=== PATIENT | male | born 1975 | race Asian ===

== ENCOUNTER 2019-08-23 14:12 | Emergency (ER) | payer BC ==
[~2019-08-23] VITALS: Ht 165.1 cm; Wt 68.0 kg
--- NOTE | 2019-08-23 14:35 | NUR ---
Patient to ER bed 05 to gown for evaluation. Side rails up.
--- NOTE | 2019-08-23 14:36 | NUR ---
Patient arrived in the ED c/o laceration on the dorsal aspect of the right foot after a box fell on it today - was seen in [facility] [place] . Denied any chest pain or shortness of breath. Denied any fevers or chills. Patient is alert and oriented x4, respirations even and unlabored, speaking in full sentences and ambulating with a steady gait. VSS, pain level 7/10. Informed of the approximate wait time. Instructed to notify ED staff for any changes in condition or worsening of symptoms while waiting to be seen by the provider. Patient verbalized understanding.
--- NOTE | 2019-08-23 14:38 | NUR ---
ER KLARISSA Urban at bedside examining patient.
--- NOTE | 2019-08-23 14:39 | NUR ---
X-ray tech at bedside as ordered by Dr. Mccloud. Patient tolerated the procedure well.
[2019-08-23 14:43] VITALS: BP_SYST 144
[2019-08-23] MEDS ORDERED: DIPH-TET-PERTUS Vaccine 0.5 ML VIAL (ADACEL) I.M. ONE (15:15)
[2019-08-23] MEDS ORDERED: HYDROcodone/ACETAMIN 5-325 MG TAB (NORCO/ VICODIN) PO ONE (15:15)
--- NOTE | 2019-08-23 15:15 | NUR ---
Administered [place] 5-325 PO and TDaP IM as ordered by Zoraida Urban ([email or web address]). Patient tolerated the medication well. See eMAR for details.
[2019-08-23] MEDS ORDERED: LIDOCAINE 2%, 20 ML MDV INJ ONE (15:45)
[2019-08-23] MEDS ORDERED: BACITRACIN 1 GM OINT TP ONE (16:00)
--- NOTE | 2019-08-23 16:15 | NUR ---
ER KLARISSA Urban at bedside doing a lac repair. Patient tolerated the procedure well.
[2019-08-23 17:05] VITALS: BP_SYST 124
--- NOTE | 2019-08-23 17:05 | NUR ---
Patient given written and verbal discharge instructions and verbalizes understanding. ER MD discussed with patient the results and treatment provided. Patient in stable condition. ID arm band removed. Rx of [place], Motrin, and Augmentin given. Patient educated on pain management and to follow up with PMD. Pain Scale 0/10. Opportunity for questions provided and answered. Medication side effect fact sheet provided.
== END 2019-08-23 17:05 | disposition home or self-care (01) ==
LOC: SED 14:12
DX: S91.311A Laceration without foreign body, right foot, initial encounter (principal); R03.0 Elevated blood-pressure reading, without diagnosis of hypertension; W22.8XXA Striking against or struck by other objects, initial encounter; Y93.89 Activity, other specified; Y92.59 Other trade areas as the place of occurrence of the external cause; Y99.8 Other external cause status
CPT/HCPCS: 12001; 73630; 90471; 90715; 99283; J2001

== ENCOUNTER 2019-09-02 09:28 | Emergency (ER) | payer BC ==
[~2019-09-02] VITALS: Ht 160 cm; Wt 68.0 kg
[2019-09-02 09:28] VITALS: BP_SYST 144
[2019-09-02 09:50] VITALS: BP_SYST 144
== END 2019-09-02 10:12 | disposition home or self-care (01) ==
LOC: SED 09:28
DX: S91.311D Laceration without foreign body, right foot, subsequent encounter (principal); R03.0 Elevated blood-pressure reading, without diagnosis of hypertension; X58.XXXD Exposure to other specified factors, subsequent encounter
CPT/HCPCS: 99281